=== PATIENT | male | born 1980 | race Caucasian/White ===

== ENCOUNTER 2017-02-28 22:58 | Emergency (ER) | payer OTHER ==
[~2017-02-28] VITALS: Ht 177.8 cm; Wt 102.1 kg
[~2017-02-28 22:58] MED LIST: LEVEMIR SUBQ; NOVOLOG100 UNIT/M SUBQ; PLAVIX 300 MG300 M1 PO; ZOCOR20 MG PO
[2017-02-28 23:35] LABS: ABSOLUTE EOSINOPHILS 0.2 thou/uL (0.0-0.7); ABSOLUTE LYMPHOCYTES 2.8 thou/uL (0.8-5.3); ABSOLUTE MONOCYTES 0.7 thou/uL (0.0-1.2); ABSOLUTE NEUTROPHILS 7.3 thou/uL (1.6-8.1); BASOPHILS 0.4 %; EOSINOPHILS 2.1 %; HEMATOCRIT 49.3 % (42.0-52.0); HEMOGLOBIN 16.9 gm/dL (14.0-18.0); LYMPHOCYTES 25.1 %; MCH 30.3 pg (26.0-34.0); MCHC 34.2 g/dL (28.0-37.0); MCV 88.5 fL (80.0-100.0); MONOCYTES 6.1 %; MPV 10.2 fl. (7.2-11.1); NUCLEATED RBCS 0 /100WBC; PLATELET COUNT* 164 thou/uL (150-400); POLYS 66.3 %; RBC 5.57 mil/uL (4.50-6.00); RDW-CV 13.8 % (10.5-14.5); WBC 11.1 thou/uL (4.0-11.0)
[2017-02-28 23:41] LABS: ANION GAP 8 mmol/L (7-16); BUN 14 mg/dL (7-18); CALCIUM 9.2 mg/dL (8.5-10.1); CHLORIDE 100 mmol/L (98-107); CO2 29 mmol/L (21-32); CREATININE 1.1 mg/dL (0.6-1.3); GLUCOSE 365 mg/dL (70-99); POTASSIUM 3.8 mmol/L (3.5-5.1); SODIUM 137 mmol/L (136-145)
[2017-02-28 23:47] LABS: ALBUMIN 3.8 g/dL (3.4-5.0); ALKALINE PHOSPHATASE 139 U/L (46-116); SGOT 16 U/L (15-37); SGPT 45 U/L (30-65); TOTAL BILIRUBIN 0.4 mg/dL (<0.1-1.0); TOTAL PROTEIN 8.4 g/dL (6.4-8.2); TROPONIN-I LEVEL <0.06 ng/mL (<0.06)
[2017-03-01 00:39] VITALS: BP 123/78
--- NOTE | 2017-03-02 14:07 | EKG ---
[place] [id number] ELECTROCARDIOGRAM REPORT Name: ALEKSANDRAANUP MOREIRANY Room: [facility]#: [id number] Admission: 02/28/17 Attend Phys: Discharge: 03/01/17 Date of : 76 Report #: [id number] THIS REPORT FOR: //name// [facility] ED Test Date: 2017-03-01 Test Time: 00:23:06 Pat Name: FABIO [place] Department: Room: Gender: Commutator Operator: SHELLEY Aldana : 1980 Requested By: Brenna Brewster Order Number: [id number] MD: Leo Wilson Measurements Intervals Leopold Rate: 80 P: 3 VT: 165 QRS: 74 QRSD: 98 T: 39 QT: 384 QTc: 443 Interpretive Statements Sinus rhythm Anteroseptal infarct, age indeterminate possible Baseline wander in lead(s) V1 minor INTRAVENTRICULAR CONDUCTION DELAY,right type Electronically Signed On 03-02-2017 14:07:43 [employer] by Leo Wilson [email or web address] <ELECTRONICALLY SIGNED> By: Leo Wilson MD, [facility] 03/02/17 1407 0023 0023 Leo Wilson MD, FAC /EPI
== END 2017-03-01 00:40 | disposition home or self-care (01) ==
LOC: M.ERS 22:58
PROVIDERS: Physician Assistant
DX: R55 Syncope and collapse (principal)

== ENCOUNTER 2019-01-08 20:20 | Emergency (ER) | payer OTHER ==
[~2019-01-08] VITALS: Ht 177.8 cm; Wt 88.0 kg
[2019-01-08] MEDS ORDERED: PRADAXA150 MG PO (20:28)
[2019-01-08] MEDS ORDERED: KEFLEX500 M2 PO (21:15)
[2019-01-08 21:28] VITALS: BP 154/89
== END 2019-01-08 21:28 | disposition home or self-care (01) ==
LOC: M.ERS 20:20
DX: S91.332A Puncture wound without foreign body, left foot, initial encounter (principal); J44.9 Chronic obstructive pulmonary disease, unspecified; E11.40 Type 2 diabetes mellitus with diabetic neuropathy, unspecified; J45.909 Unspecified asthma, uncomplicated; Z88.6 Allergy status to analgesic agent; Z88.8 Allergy status to other drugs, medicaments and biological substances; W22.8XXA Striking against or struck by other objects, initial encounter; Y93.89 Activity, other specified; Y92.89 Other specified places as the place of occurrence of the external cause; Y99.8 Other external cause status

== ENCOUNTER 2019-05-11 00:25 | Emergency (ER) | payer OTHER ==
[~2019-05-11] VITALS: Ht 177.8 cm; Wt 147.4 kg
[~2019-05-11 00:25] MED LIST changes: +KEFLEX500 M2 PO; +PRADAXA150 MG PO
[2019-05-11] MEDS ORDERED: GLUCOPHAGE1000 MG PO (00:35)
[2019-05-11] MEDS ORDERED: PENICILLIN VK500 MG PO (01:11)
[2019-05-11] MEDS ORDERED: PERIDEX 0.12%473 M1 SW&SWALLOW (01:11)
[2019-05-11] MEDS ORDERED: HYDROCODON-ACE1 EAC7 PO (01:11)
[2019-05-11 01:36] VITALS: BP 127/75
== END 2019-05-11 01:37 | disposition home or self-care (01) ==
LOC: M.ERS 00:25
DX: K02.9 Dental caries, unspecified (principal); K05.10 Chronic gingivitis, plaque induced; F17.210 Nicotine dependence, cigarettes, uncomplicated; J44.9 Chronic obstructive pulmonary disease, unspecified; J45.909 Unspecified asthma, uncomplicated; E11.40 Type 2 diabetes mellitus with diabetic neuropathy, unspecified; Z88.6 Allergy status to analgesic agent; Z88.8 Allergy status to other drugs, medicaments and biological substances; Z79.4 Long term (current) use of insulin; Z79.84 Long term (current) use of oral hypoglycemic drugs

== ENCOUNTER 2019-05-18 | Emergency (ER) | payer OTHER ==
[~2019-05-18] VITALS: Ht 177.8 cm; Wt 107.0 kg
[~2019-05-18] MED LIST changes: +GLUCOPHAGE1000 MG PO; +HYDROCODON-ACE1 EAC7 PO; +PENICILLIN VK500 MG PO; +PERIDEX 0.12%473 M1 SW&SWALLOW
[2019-05-18 00:14] VITALS: BP 131/81
[2019-05-18] MEDS ORDERED: CLINDAMYCIN HC150 MG PO (00:29)
== END 2019-05-18 00:38 | disposition home or self-care (01) ==
LOC: M.ERS
DX: K08.89 Other specified disorders of teeth and supporting structures (principal); E11.40 Type 2 diabetes mellitus with diabetic neuropathy, unspecified; J44.9 Chronic obstructive pulmonary disease, unspecified; J45.909 Unspecified asthma, uncomplicated; Z79.4 Long term (current) use of insulin; Z95.5 Presence of coronary angioplasty implant and graft; Z88.6 Allergy status to analgesic agent; Z88.8 Allergy status to other drugs, medicaments and biological substances